=== PATIENT | female | born 1970 | race Caucasian/White ===

== ENCOUNTER → 2018-04-28 07:34 | Outpatient (CLI) | payer OTHER, SELFPAY ==
[2018-04-28 08:37] LABS: Add Manual Diff / Slide Review NO; Basophils Percent Auto 1.1 % (0-2); Eosinophils Percent Auto 1.6 % (2-4); Hematocrit 37.4 % (36-46); Hemoglobin 12.5 g/dL (12.0-16.0); Lymphocytes Percent Auto 25.2 % (25-40); Mean Corpuscular HGB Conc 33.3 % (30-36); Mean Corpuscular Volume 84.2 fL (80-100); Monocytes Percent Auto 6.8 % (3-14); Neutrophils Absolute Auto 6000 /uL (3000-5900); Neutrophils Percent Auto 65.3 % (50-75); Platelet Count 351 X10^3/uL (150-400); Red Blood Cell Count 4.44 X10^6/uL (4.0-5.2); Red Cell Distribution Width 13.7 % (11.6-14.8); White Blood Cell Count 9.2 X10^3/uL (4.5-11.0)
[2018-04-28 08:39] LABS: Alanine Aminotransferase 36 IU/L (9-52); Albumin 4.1 g/dL (3.5-5.0); Albumin Globulin Ratio 1.2 (1.0-2.8); Alkaline Phosphatase 86 U/L (38-126); Aspartate Aminotransferase 34 IU/L (14-36); Bilirubin Total 0.6 mg/dL (0.2-1.3); Blood Urea Nitrogen 11 mg/dL (7-17); Calcium 8.9 mg/dL (8.4-10.2); Carbon Dioxide 28 mmol/L (22-32); Chloride 101 mmol/L (98-107); Cholesterol 195 mg/dL (140-199); Estimated Glomerular Filt Rate > 60.0 mL/min (>60); Globulin 3.4 g/dL (1.7-4.1); Glucose 104 mg/dL (70-100); HDL Cholesterol 37 mg/dL (40-60); HEMOLYSIS 44 (0-50); LDL Cholesterol Calculated 126 mg/dL (<100); Potassium 4.2 mmol/L (3.4-5.1); Sodium 139 mmol/L (137-145); Total Protein 7.5 g/dL (6.3-8.2); Triglycerides 159 mg/dL (35-150)
[2018-04-28 08:55] LABS: Follicle Stimulating Hormone 8.19 mIU/mL; Luteinizing Hormone 6.33 mIU/mL
[2018-04-28 09:04] LABS: Free T4, Direct Thyroxine 0.86 ng/dL (0.78-2.19)
[2018-04-28 09:18] LABS: Thyroid Stimulating Hormone 2.57 uIU/mL (0.47-4.68)
== END ==
PROVIDERS: Family Provider Family Medicine; PCP Family Medicine; Visit Provider Family Medicine
DX: R63.5 Abnormal weight gain (principal); N91.2 Amenorrhea, unspecified; Z13.220 Encounter for screening for lipoid disorders
CPT/HCPCS: 36415; 80053; 80061; 83001; 83002; 84439; 84443; 85025

== ENCOUNTER → 2020-10-06 12:05 | Outpatient (CLI) | payer OTHER, SELFPAY ==
[2020-10-06 12:43] LABS: COVID19 -Nasal RAPID Negative (Negative)
== END ==
PROVIDERS: Family Provider Family Medicine; PCP Family Medicine; Visit Provider Physician Assistant
DX: Z11.59 Encounter for screening for other viral diseases (principal)
CPT/HCPCS: 87635

== ENCOUNTER → 2021-10-19 18:21 | Outpatient (CLI) | payer OTHER, SELFPAY ==
--- NOTE | 2021-10-19 18:47 | DI.RAD.S_ITS ---
PROCEDURE: XR CHEST 2V INDICATIONS: COUGH TECHNIQUE: 2 views of the chest were acquired. COMPARISON: [facility], , CHEST 2 VIEW, 09/15/2015, 20:31. FINDINGS: Surgical changes and devices: None. Lungs and pleura: Lungs are clear. No pleural effusions or pneumothorax. Elevated right hemidiaphragm is new from the prior exam. Right basilar platelike atelectasis. Mediastinum: Mediastinal contours are normal. Heart size is normal. Bones and chest wall: No suspicious bony abnormalities. Soft tissues appear unremarkable. IMPRESSION: Elevated right hemidiaphragm is new from the prior exam. Associated platelike atelectasis noted. Approved by: Nikolay Raines M.D. on 10/19/2021 at 18:04
== END ==
PROVIDERS: Family Provider Family Medicine; PCP Family Medicine; Referring Provider Family Medicine; Visit Provider Family Medicine
DX: J98.11 Atelectasis (principal); R05.3 Chronic cough; R93.7 Abnormal findings on diagnostic imaging of other parts of musculoskeletal system
CPT/HCPCS: 71046

== ENCOUNTER → 2021-11-24 14:08 | Outpatient (CLI) | payer OTHER, SELFPAY ==
--- NOTE | 2021-11-24 | DI.CT.S_ITS ---
PROCEDURE: CT CHEST WO CON INDICATIONS: COUGH TECHNIQUE: Noncontrast 5 mm thick sections acquired from the pulmonary apices to the posterior costophrenic angles. 1 mm lung window, 5 mm thick coronal and sagittal and 7 mm axial MIP reformats were then acquired. For radiation dose reduction, the following was used: automated exposure control, adjustment of mA and/or kV according to patient size. COMPARISON: None. FINDINGS: Image quality: Excellent. Lungs and pleura: 2 mm pulmonary nodule, superior segment of right lower lobe, image 82/4. On image 107/4 and image 46/5 there is atelectasis versus scarring which gives the appearance of an ill-defined 9 mm pleural based pulmonary nodule on axial images, but is noted to simply represent atelectasis versus scarring when looking at the sagittal reformats. There is elevation of the right hemidiaphragm. There are multiple areas of platelike atelectasis versus scarring in the right lung, involving the middle lobe and lower lobe. No acute air space opacities. No pleural effusions or pneumothorax. Central and peripheral airways are patent and normal in caliber. Mediastinum: Heart size is normal. No pericardial effusion. No mediastinal adenopathy by size criteria. Thoracic aorta and central pulmonary arteries are normal in size. Esophagus is normal in caliber. Moderate hiatal hernia. Bones and chest wall: No suspicious bony lesions. No vertebral body compression fractures. No axillary or supraclavicular adenopathy by size criteria. Thyroid gland is grossly unremarkable as visualized. Abdomen: Visualized upper abdominal solid organs and bowel loops appear normal in the absence of contrast. IMPRESSION: 1. Elevation of the right hemidiaphragm. 2. 2 mm right lower lobe pulmonary nodule. 3. Linear areas of platelike atelectasis versus scarring in the right middle lobe and right lower lobe. 4. Platelike atelectasis versus scarring in the right lower lobe gives the appearance of a 9 mm nodule on axial images. This is felt to simply represent atelectasis or scarring. Dictated by: Jer Escobar M.D. on 11/25/2021 at 9:12 Approved by: Jer Escobar M.D. on 11/25/2021 at 9:19
== END ==
PROVIDERS: Family Provider Family Medicine; PCP Family Medicine; Referring Provider Internal Medicine Pulmonary Disease; Visit Provider Internal Medicine Pulmonary Disease
DX: R05.9 Cough, unspecified (principal); R91.1 Solitary pulmonary nodule; K44.9 Diaphragmatic hernia without obstruction or gangrene
CPT/HCPCS: 71250

== ENCOUNTER → 2022-07-03 10:44 | Outpatient (CLI) | payer OTHER, SELFPAY ==
--- NOTE | 2022-07-03 10:44 | DI.CT.S_ITS ---
PROCEDURE: CT CHEST WO CON INDICATIONS: Solitary pulmonary nodule TECHNIQUE: Noncontrast 2.0-2.5 mm thick sections acquired from the pulmonary apices to the posterior costophrenic angles. 7 mm thick axial MIP and 5 mm coronal and sagittal reformats were then acquired. A low radiation dose technique was utilized. COMPARISON: [facility], CT, CT CHEST WO CON, 11/24/2021, 14:17. FINDINGS: Image quality: Diagnostic, given the low radiation dose technique. Lungs and pleura: Basilar reticular thickening with mild atelectasis and/or scarring. No focal consolidation. No pleural effusion. Stable appearance of right apical lower lobe 2 mm subpleural nodule seen on series 4, image 85. Stable elevation of the right hemidiaphragm. Mediastinum: Heart size is normal. No pericardial effusion. No mediastinal adenopathy by size criteria. Thoracic aorta and central pulmonary arteries are normal in size. Esophagus is normal in caliber. Hiatal hernia. Bones and chest wall: No suspicious bony lesions. No vertebral body compression fractures. No axillary or supraclavicular adenopathy by size criteria. Thyroid gland is normal . Abdomen: Visualized upper abdomen solid organs and bowel loops appear normal in the absence of contrast. IMPRESSION: 1. Unchanged small 2 mm pulmonary nodule. 2. Decreased prominence of atelectasis and/or scarring of the right lower lobe. Dictated by: Ulices Holguin M.D. on 07/03/2022 at 10:13 Approved by: Ulices Holguin M.D. on 07/03/2022 at 10:19
== END ==
PROVIDERS: Family Provider Family Medicine; PCP Family Medicine; Referring Provider Internal Medicine Pulmonary Disease; Visit Provider Internal Medicine Pulmonary Disease
DX: R91.1 Solitary pulmonary nodule (principal)
CPT/HCPCS: 71250